=== PATIENT | female | born 1935 | race Caucasian/White ===

== ENCOUNTER 2017-12-15 18:04 | Inpatient (IN) | payer OTHER ==
[~2017-12-15] VITALS: Ht 154.9 cm; Wt 49.4 kg
--- NOTE | 2017-12-15 18:05 | NUR ---
PT LAWRENCE BROWNS
--- NOTE | 2017-12-15 18:11 | NUR ---
PT TAKEN BY EMS CREW TO BED 2
--- NOTE | 2017-12-15 18:16 | NUR ---
PT TRIAGED IN BED 2, REPORT GIVEN TO GLORIA MESSINA.
--- NOTE | 2017-12-15 18:17 | NUR ---
82Y/F BIBA FROM [facility] CALLED AFTER PT WENT TO SLEEP AND WASN'T ANSWERING QUESTIONS APPROPRIATELY, THIS IS BASELINE D/T DEMENTIA. ON ARRIVAL VERBALIZATIONS WERE UNCOMPREHENSIBLE BUT SHE IS ABLE TO VERBALIZE HER YEAR OF . VSS, NAD NOTED. PATIENT POSITIONED FOR COMFORT; HOB ELEVATED; BEDRAILS UP X2; BED DOWN. ER MD MADE AWARE OF PT STATUS.
[2017-12-15 18:21] VITALS: BP 130/78
[2017-12-15 19:23] LABS: BASOPHILS # (AUTO) 0.1 K/uL (0.00-0.22); BASOPHILS % (AUTO) 0.7 % (0.0-2.0); EOSINOPHILS % (AUTO) 0.3 % (0.0-4.0); HEMATOCRIT 37.7 % (36-48); HEMOGLOBIN 11.6 g/dL (12.0-16.0); LYMPHOCYTES # (AUTO) 1.5 K/uL (2.5-16.5); LYMPHOCYTES % (AUTO) 19.3 % (20.5-51.1); MEAN CORPUSCULAR HEMOGLOBIN 27 pg (27-31); MEAN CORPUSCULAR HGB CONC 31 g/dL (33-37); MONOCYTES # (AUTO) 0.6 K/uL (0.8-1.0); MONOCYTES % (AUTO) 7.3 % (1.7-9.3); NEUTROPHILS # (AUTO) 5.7 K/uL (1.8-7.7); NEUTROPHILS % (AUTO) 72.4 % (42.2-75.2); PLATELET COUNT (AUTO) 238 K/uL (140-450); RED BLOOD CELL COUNT(AUTO) 4.28 MIL/uL (4.20-5.40); RED CELL DISTRIBUTION WIDTH 16.4 % (11.6-13.7); WHITE BLOOD COUNT (AUTO) 7.8 K/uL (4.8-10.8)
[2017-12-15 19:31] LABS: CARBON DIOXIDE 27.5 mmol/L (21-32); CHLORIDE 109 mmol/L (98-107); GLUCOSE 132 mg/dL (74-106); POTASSIUM 4.5 mmol/L (3.5-5.1); SODIUM SERUM 142 mmol/L (136-145); UREA NITROGEN, BLOOD 31 mg/dL (7-18)
[2017-12-15 19:37] LABS: ALBUMIN 3.4 g/dL (3.4-5.0); ASPARTATE AMINOTRANSFERASE 17 U/L (15-37); TOTAL BILIRUBIN 0.6 mg/dL (0.0-1.0)
[2017-12-15] MEDS ORDERED: ASPIRIN 325 MG TAB PO ONE (20:05)
[2017-12-15] MEDS ORDERED: NITROGLYCERIN 2% 1 GM PKT TP ONE (20:05)
[2017-12-15] MEDS ORDERED: ATOR10TA PO (20:14)
[2017-12-15] MEDS ORDERED: MULT-2410 PO (20:14)
[2017-12-15] MEDS ORDERED: [UNRECOGNIZED DRUG - CODE] TD (20:14)
[2017-12-15] MEDS ORDERED: LISI10TA11 PO (20:14)
[2017-12-15] MEDS ORDERED: METF500T PO (20:14)
[2017-12-15] MEDS ORDERED: VITD1000 PO (20:14)
[2017-12-15] MEDS ORDERED: ASPI81CT89 PO (20:14)
--- NOTE | 2017-12-15 20:40 | NUR ---
REPORT RECV'D FROM GLORIA MESSINA
--- NOTE | 2017-12-15 20:40 | NUR ---
GAVE REPORT TO SIDDHARTH CONWAY
--- NOTE | 2017-12-15 20:41 | NUR ---
PT FOUND DESATTING TO 88%, PLACED ON 2L NC, 97% ON 2L NC.
[2017-12-15] MEDS ORDERED: DOCUSATE SODIUM 100 MG GELCAP PO PRN (20:50)
[2017-12-15] MEDS ORDERED: ZOLPIDEM 5 MG TAB PO PRN (20:50)
[2017-12-15] MEDS ORDERED: HYDROcodone/APAP 5/325 MG 1 TAB TAB PO PRN (20:50)
[2017-12-15] MEDS ORDERED: ACETAMINOPHEN 325 MG TAB PO PRN (20:50)
[2017-12-15] MEDS ORDERED: ONDANSETRON 4 MG/2 ML VIAL IM/IVP PRN (20:50)
[2017-12-15] MEDS ORDERED: NITROGLYCERIN 0.4 MG TAB SL PRN (21:00)
[2017-12-15] MEDS ORDERED: ATORVASTATIN 20 MG TAB PO SCH (21:00)
[2017-12-15 21:15] LABS: PROTHROMBIN TIME 10.7 secs (10.8-13.4)
--- NOTE | 2017-12-15 21:21 | NUR ---
Patient will be admitted to care of DR. ESCOBEDO. Admited to [facility]. Will go to room 104 A. Belongings list completed. Report to ADRIANNA MESSINA.
[2017-12-15 21:24] LABS: CHOL/HDL RATIO 2.8 (1-4.5); MAGNESIUM 2.3 mg/dL (1.8-2.4); PHOSPHORUS 3.8 mg/dL (2.5-4.9); THYROID STIMULATING HORMONE 4.45 uIU/mL (0.34-3.74)
[2017-12-15 21:27] LABS: BILIRUBIN,URINE 1+ (NEGATIVE); BLOOD, URINE NEGATIVE (NEGATIVE); LEUKOCYTE ESTERASE ,URINE NEGATIVE (NEGATIVE); NITRITE, URINE NEGATIVE (NEGATIVE); UGLUCOSE NEGATIVE (NEGATIVE)
[2017-12-15 21:30] VITALS: BP 116/72
--- NOTE | 2017-12-15 21:30 | NUR ---
PATIENT ARRIVED TO THE UNIT FROM ER. PATIENT IS AOX2. VIETNAMESE SPEAKING. NO SIGNS AND SYMPTOMS OF DISTRESS NOTED. NO COMPLAINTS OF PAIN AT THIS TIME. PATIENT CAN ANSWER A FEW QUESTIONS ABOUT MEDICAL HISTORY, THE REST OF INFORMATION TAKEN FROM PATIENT'S CHART. PLAN OF CARE DISCUSSED WITH PATIENT. REINFORCEMENT NEEDED. PATIENT ON O2 2L NC. IV SITE NOTED ON RIGHT FOREARM, 20 GAUGE. BED IN LOWEST POSITION, SIDE RAILS UP AND BED ALARM ON. SAFETY PRECAUTIONS IN PLACE. WILL CONTINUE TO MONITOR
[2017-12-15] MEDS ORDERED: HEPARIN PER PHARMACY MC PRN (21:40)
[2017-12-15] MEDS ORDERED: hePARIN / DEXT 5% PREMIX 250 ML IV SCH (21:40)
[2017-12-15 21:41] LABS: APPEARANCE,URINE CLEAR (CLEAR)
[2017-12-15 21:42] LABS: COLOR,URINE AMBER (YELLOW)
[2017-12-15] MEDS ORDERED: FUROSEMIDE 20 MG/2 ML VIAL IVP SCH (23:00)
[2017-12-15] MEDS: NACL 0.9% 1,000 ML IV SCH (23:00)
[2017-12-15] MEDS ORDERED: METOPROLOL 25 MG TAB PO SCH (23:00)
--- NOTE | 2017-12-15 23:30 | NUR ---
PATIENT RETURNED FROM RADIOLOGY
--- NOTE | 2017-12-15 23:30 | NUR ---
PATIENT TAKEN TO RADIOLOGY FOR CT SCAN
[2017-12-16] VITALS (7 sets, daily range): BP systolic 90–133; BP diastolic 47–88
--- NOTE | 2017-12-16 | NUR ---
NEW IV SITE INSERTED RIGHT WRIST 24 GAUGE. PATIENT TOLERATED WELL
--- NOTE | 2017-12-16 00:15 | NUR ---
HEPARIN DRIP STARTED PER PHARMACY PROTOCOL. 3000 UNITS BOLUS GIVEN, HEPARIN DRIP RUNNING AT 600UNITS/HR.
[2017-12-16] MEDS: hePARIN / DEXT 5% PREMIX 250 ML IV SCH ×2 (00:16→21:52)
--- NOTE | 2017-12-16 01:00 | NUR ---
PATIENT PULLED OUT IV SITE ON RIGHT WRIST. IV CANNULA INTACT. PATIENT REFUSING NEW IV SITE AT THIS TIME. WILL TRY LATER.
[2017-12-16] MEDS ORDERED: DEXTROSE 50% 50 ML SYR IVP PRN (01:40)
--- NOTE | 2017-12-16 02:35 | NUR ---
ASSISTED PATIENT WITH BED THURMAN. PATIENT VOIDED. PERICARE DONE. PATIENT TOLERATED WELL. WILL CONTINUE TO MONITOR
--- NOTE | 2017-12-16 03:45 | NUR ---
NEW IV SITE INSERTED RIGHT WRIST 24 GAUGE. PATIENT TOLERATED WELL. WILL CONTINUE TO MONITOR.
[2017-12-16] MEDS: BLOOD GLUCOSE MONITORING 1 DEV DEV FS SCH ×4 (05:34→20:47)
[2017-12-16 07:16] LABS: BASOPHILS % (AUTO) 0.6 % (0.0-2.0); EOSINOPHILS % (AUTO) 0.2 % (0.0-4.0); HEMOGLOBIN 10.7 g/dL (12.0-16.0); LYMPHOCYTES % (AUTO) 13.3 % (20.5-51.1); MEAN CORPUSCULAR HEMOGLOBIN 28 pg (27-31); MEAN CORPUSCULAR HGB CONC 32 g/dL (33-37); MONOCYTES # (AUTO) 0.4 K/uL (0.8-1.0); MONOCYTES % (AUTO) 5.5 % (1.7-9.3); NEUTROPHILS # (AUTO) 5.8 K/uL (1.8-7.7); NEUTROPHILS % (AUTO) 80.4 % (42.2-75.2); PLATELET COUNT (AUTO) 207 K/uL (140-450); RED BLOOD CELL COUNT(AUTO) 3.82 MIL/uL (4.20-5.40); RED CELL DISTRIBUTION WIDTH 16.2 % (11.6-13.7); WHITE BLOOD COUNT (AUTO) 7.3 K/uL (4.8-10.8)
--- NOTE | 2017-12-16 07:20 | NUR ---
PATIENT REPORT GIVEN TO MORNING NURSE AT BEDSIDE. PATIENT IS IN STABLE CONDITION
--- NOTE | 2017-12-16 07:20 | NUR ---
REPORT RECEIVED FROM NIGHTSHIFT NURSE AT BEDSIDE. PATIENT IS HARD TO AROUSE AT THIS TIME AND IS EXTREMELY DROWSY. BLOOD PRESSURE TAKEN AND IT IS WITHIN NORMAL LIMITS. O2 SATURATION IS WITHIN NORMAL LIMITS. PATIENT ON 2L O2 VIA NC. NO DISTRESS NOTED. FLACC SCORE 0. PATIENT HAS TWO IV SITES ON RIGHT WRIST 24 G RUNNING NACL 20 ML/HR. PATIENT HEPARIN LINE NOTED ON RIGHT FOREARM 20G RUNNING 600 UNITS/HR. BED IS ALARMED. CALL LIGHT WITHIN REACH OF PATIENT. UPDATED BOARD IN PATIENT'S ROOM. APPOPRIATE SIGNS PLACED OUTSIDE OF PATIENT'S ROOM. WILL CONTINUE TO MONITOR PATIENT.
[2017-12-16 07:57] LABS: ANION GAP 12.7 (8-16); CARBON DIOXIDE 26.5 mmol/L (21-32); CHLORIDE 110 mmol/L (98-107); GLUCOSE 131 mg/dL (74-106); POTASSIUM 4.2 mmol/L (3.5-5.1); SODIUM SERUM 145 mmol/L (136-145); UREA NITROGEN, BLOOD 30 mg/dL (7-18)
--- NOTE | 2017-12-16 08:10 | NUR ---
PTT LEVEL OF PATIENT IS WITHIN THERAPEUTIC RANGE. NO BOLUS GIVEN AND NO CHANGE IN PATIENT'S HEPARIN DRIP.
[2017-12-16 08:19] LABS: MAGNESIUM 2.3 mg/dL (1.8-2.4); PHOSPHORUS 4.3 mg/dL (2.5-4.9)
[2017-12-16] MEDS ORDERED: LISINOPRIL 5 MG TAB PO SCH (09:00)
[2017-12-16] MEDS ORDERED: ASPIRIN 81 MG TAB.CHEW PO SCH (09:00)
[2017-12-16] MEDS ORDERED: VITAMIN D 400 IU TAB PO SCH (09:00)
[2017-12-16] MEDS ORDERED: MULTIVITAMIN PO SCH (09:00)
[2017-12-16] MEDS ORDERED: FUROSEMIDE 20 MG/2 ML VIAL IVP SCH (09:00)
[2017-12-16] MEDS: ASPIRIN 81 MG TAB.CHEW PO SCH (10:01)
[2017-12-16] MEDS: MULTIVITAMIN 1 TAB PO SCH (10:01)
[2017-12-16] MEDS: metFORMIN 500 MG TAB PO SCH (10:02)
[2017-12-16] MEDS: LISINOPRIL 10 MG TAB PO SCH (10:05)
[2017-12-16] MEDS: METOPROLOL 25 MG TAB PO SCH ×2 (10:05→20:46)
--- NOTE | 2017-12-16 10:05 | NUR ---
PATIENT GIVEN ALL MEDICATIONS EXCEPT LASIX. PATIENT TOLERATED WELL. WILL CONTINUE TO MONITOR PATIENT.
--- NOTE | 2017-12-16 12:20 | NUR ---
PATIENT SLEEPING IN BED. NO DISTRESS NOTED. WILL CONTINUE TO MONITOR PATIENT.
[2017-12-16] MEDS: INSULIN LISPRO SLIDING SCALE 100 UNITS/ML VIAL SUBQ PRN (13:36)
--- NOTE | 2017-12-16 14:16 | NUR ---
FAXED INITIAL REVIEW TO [facility] [phone] PHONE [phone].
--- NOTE | 2017-12-16 14:50 | NUR ---
PATIENT SLEEPING. WILL CONTINUE TO MONITOR PATIENT.
--- NOTE | 2017-12-16 16:28 | NUR ---
PATIENTS BLOOD SUGAR IS 72. GAVE PATIENT ORANGE JUICE TO DRINK. WILL REASSESS
--- NOTE | 2017-12-16 17:05 | NUR ---
PATIENT BLOOD SUGAR AT 122. PATIENT FAMILY MEMBERS AT BEDSIDE. PATIENT IS STABLE.
--- NOTE | 2017-12-16 17:15 | NUR ---
PATIENT PTT LEVEL AT 44.8. GAVE PATIENT BOLUS OF 1500 U OF HEPARIN AND INCREASED HEPARIN DRIP TO 700 U/HR. PATIENT TOLERATING WELL. WILL CONTINUE TO MONITOR PATIENT.
--- NOTE | 2017-12-16 19:05 | NUR ---
GAVE REPORT TO NIGHTSHIFT NURSE. PATIENT IN STABLE CONDITION.
--- NOTE | 2017-12-16 19:30 | NUR ---
RECEIVE FROM AM RN IN BED AWAKE AND ALERT.PT.ABLE TO VERBALIZE SIMPLE NEEDS. UNDERSTANDS MAURITANIAN AND MALAY WELL. FOR SWALLOW EVALUATION TOMORROW ORDERED. FAMILY MEMBERS IN HERE VISITING. PT.WITH CONFUSION AT TIMES RT HISTORY OF DEMENTIA. ON 02 AT 2LPM/NC WITH 02 SAT AT 95 %. CARE PLANS FOR THE NIGHT DISCUSSED WITH THEM. ON HEPARIN DRIP AT 7ML/H. BED ALARM ON . NEEDS WILL BE ANTICIPATED AND WILL BE MET.TELEMETRY MONITORING.
[2017-12-16] MEDS: ATORVASTATIN 20 MG TAB PO SCH (20:46)
[2017-12-16] MEDS: NACL 0.9% 1,000 ML IV SCH (20:47)
--- NOTE | 2017-12-16 21:58 | NUR ---
PTT LEVEL FOR 2100 WAS 86.6 . REDUCED DRIP TO 600 UNITS FROM 700 STARTING. CHARGE NURSE MADE AWARE. NEXT PTT ORDERED FOR 0300. PT. SLEEPING AT THIS TIME. IVF SITE NOT INFILTRATED.
--- NOTE | 2017-12-16 23:29 | NUR ---
PT. VITAL SIGN TAKEN. AWAKE AND ALERT. ABLE TO VERBALIZE SIMPLE NEEDS. STATED SHE IS WET WITH URINE. CHANGED BEDDINGS . KEPT DRY, CLEAN AND COMFORTABLE. NO PAIN COMPLAINTS DONE. TELEMETRY MONITORING. NO RESTLESSNESS NOTED.
[2017-12-17 03:20] LABS: BASOPHILS % (AUTO) 0.7 % (0.0-2.0); EOSINOPHILS % (AUTO) 0.3 % (0.0-4.0); HEMOGLOBIN 11.5 g/dL (12.0-16.0); LYMPHOCYTES # (AUTO) 1.5 K/uL (2.5-16.5); LYMPHOCYTES % (AUTO) 19.2 % (20.5-51.1); MEAN CORPUSCULAR HEMOGLOBIN 27 pg (27-31); MEAN CORPUSCULAR HGB CONC 31 g/dL (33-37); MONOCYTES # (AUTO) 0.5 K/uL (0.8-1.0); NEUTROPHILS # (AUTO) 5.5 K/uL (1.8-7.7); NEUTROPHILS % (AUTO) 72.8 % (42.2-75.2); PLATELET COUNT (AUTO) 228 K/uL (140-450); RED CELL DISTRIBUTION WIDTH 16.3 % (11.6-13.7); WHITE BLOOD COUNT (AUTO) 7.6 K/uL (4.8-10.8)
[2017-12-17 03:23] LABS: CARBON DIOXIDE 26.2 mmol/L (21-32); CHLORIDE 110 mmol/L (98-107); CREATININE 0.9 mg/dL (0.6-1.3); GLUCOSE 120 mg/dL (74-106); POTASSIUM 4.2 mmol/L (3.5-5.1); SODIUM SERUM 145 mmol/L (136-145); UREA NITROGEN, BLOOD 30 mg/dL (7-18)
--- NOTE | 2017-12-17 04:18 | NUR ---
NO CHANGE IN HEPARIN DOSE FOR 0300 RESULT OF 56.9- DOSING WILL BE ON 600 UNITS/ 6 ML. NEXT PTT IS 0900.
[2017-12-17 04:21] VITALS: BP 115/68
--- NOTE | 2017-12-17 04:23 | NUR ---
MORNING PERSONAL HYGIENE RENDERED. BED LINEN CHANGED RT URINATED. KEPT CLEAN AND DRY. NO SOB. DENIES PAIN. TELEMETRY MONITORING.
[2017-12-17] MEDS: BLOOD GLUCOSE MONITORING 1 DEV DEV FS SCH ×4 (05:49→20:50)
--- NOTE | 2017-12-17 05:49 | NUR ---
BLOOD SUGAR CHECK PER FINGERSTICK IS 125. NO INSULIN COVERAGE. AWAKE AND ALERT. ABLE TO VERBALIZE SIMPLE NEEDS. TELEMETRY MONITORING. GOOD AFFECT. REMINDED TO USE CALL LIGHT FOR HELP.
--- NOTE | 2017-12-17 07:05 | NUR ---
RECEIVED REPORT FROM NIGHTSHIFT NURSE AT BEDSIDE. PATIENT IS ASLEEP BUT EASILY AROUSABLE. PATIENT ON O2 2 LITERS NASAL CANNULA. VITAL SIGNS WITHIN NORMAL LIMITS. NO DISTRESS NOTED. NO PAIN NOTED. PATIENT HAS AN IV 20 G ON LEFT FOREARM RUNNING 600U/HR HEPARIN DRIP. NO SIGNS OF BLEEDING NOTED. PUT CALL LIGHT WITHIN REACH OF PATIENT. LOWERED BED TO LOWEST SETTING. UPDATED BOARD IN PATIENT'S ROOM. WILL CONTINUE TO MONITOR PATIENT.
[2017-12-17 08:00] VITALS: BP 129/86
[2017-12-17 08:17] LABS: T4 (THYROXINE) 6.9 ug/dL (4.5-12.0)
[2017-12-17] MEDS: METOPROLOL 25 MG TAB PO SCH ×2 (08:22→20:50)
[2017-12-17] MEDS: LISINOPRIL 10 MG TAB PO SCH (08:23)
[2017-12-17] MEDS: ASPIRIN 81 MG TAB.CHEW PO SCH (08:23)
[2017-12-17] MEDS: MULTIVITAMIN 1 TAB PO SCH (08:23)
[2017-12-17] MEDS: metFORMIN 500 MG TAB PO SCH (08:23)
--- NOTE | 2017-12-17 08:23 | NUR ---
PATIENT TOOK ALL AM MEDICATIONS. PATIENT TOLERATED WELL. WILL CONTINUE TO MONITOR PATIENT.
[2017-12-17] MEDS ORDERED: VITAMIN D 400 IU TAB PO SCH (09:00)
--- NOTE | 2017-12-17 11:20 | NUR ---
PTT CAME OUT TO 43.7. CHARLES FROM PHARMACY WILL CHANGE PROTOCOL OF HEPARIN DRIP. WILL INCREASE DRIP RATE FROM 600 U /HR TO 700 U/HR.
[2017-12-17 12:00] VITALS: BP 100/64
--- NOTE | 2017-12-17 12:30 | NUR ---
CM NOTE FAXED CONCURRENT REVIEW TO [facility] [phone] PHONE [phone].
--- NOTE | 2017-12-17 13:30 | NUR ---
PATIENT SLEEPING IN BED. NO DISTRESS NOTED. WILL CONTINUE TO MONITOR PATIENT.
--- NOTE | 2017-12-17 13:40 | NUR ---
ADMINISTRATIVE RESIDENT NOTE [id number] Bedside swallow evaluation completed following clearance by SIDDHARTH Cardenas. Please refer to ADMINISTRATIVE RESIDENT evaluation for full report. Recommend: -Mech soft/chopped texture and thin liquids -Supervision for intake and safety -Encourage PO intake -Dentures in while consuming PO -RD consult/appetitie stimulant consideration for poor appetite -ADMINISTRATIVE RESIDENT to follow 1x/wk x1wk for diet tolerance and modification and warranted. PVE w/RN and family re: results and recommendations. G8996: CJ G8998: CI Swallow NOMS 3
[2017-12-17] MEDS: hePARIN / DEXT 5% PREMIX 250 ML IV SCH (13:49)
--- NOTE | 2017-12-17 15:22 | NUR ---
PT NOTES CLEARED BY RN FOR P.T. TX. ATTEMPTED TO SEE PATIENT FOR TX, BUT PATIENT DECLINED TO PARTICIPATE. PATIENT C/O FATIGUE. PATIENT'S FAMILY PRESENT AT BEDSIDE. PATIENT ENCOURAGED TO PARTICIPATE, BUT DECLINED. RN "MARCIANO" IS AWARE. DISCUSSED W/ PRIMARY PHYSICAL THERAPIST. WILL FOLLOW UP TOMORROW. Addendum: 12/17/17 at 1549 by Niharika Savage PT PHYSICAL THERAPY CO-SIGN The Physical Therapy Progress Notes documented by Counter Waitress/Waiter have been reviewed. Reviewed/Co-Signed by: Niharika Savage DPT Documentation Done by: Talita Cha PTA I concur w/MULTIPLE LAUNCH ROCKET SYSTEM CREWMEMBER notes. No PT tx done today.
[2017-12-17 16:00] VITALS: BP 104/69
--- NOTE | 2017-12-17 16:20 | NUR ---
PATIENT SLEEPING. NO DISTRESS NOTED. WILL CONTINUE TO MONITOR PATIENT.
--- NOTE | 2017-12-17 18:37 | NUR ---
PATIENT'S PTT LEVEL OF 57.2 IS WITHIN THERAPEUTIC LEVEL. NO CHANGE IN HEPARIN DRIP AND NO BOLUS.
--- NOTE | 2017-12-17 19:20 | NUR ---
GAVE REPORT TO NIGHTSHIFT NURSE AT BEDSIDE. PATIENT IN STABLE CONDITION.
--- NOTE | 2017-12-17 19:55 | NUR ---
SEEN PT ASLEEP BUT EASILY AROUSABLE. INITIAL ASSESSMENT DONE. VITAL SIGNS CHECKED. PT DENIES ANY DISCOMFORT OR SHORTNESS OF BREATH. SAFETY ENSURED. PT REPOSITIONED FOR COMFORT. BED ALARM IS ON. WILL CONTINUE TO MONITOR.
[2017-12-17 20:00] VITALS: BP 104/61
[2017-12-17] MEDS: ATORVASTATIN 20 MG TAB PO SCH (20:50)
--- NOTE | 2017-12-17 20:50 | NUR ---
SEEN PT SLEEPING BUT EASILY AROUSABLE. BLOOD SUGAR CHECKED:131. NO COVERAGE NEEDED. MEDICATIONS GIVEN FOLLOWED W/ WATER. PT TOLERATED MEDICATION. TEACHINGS PROVIDED.
--- NOTE | 2017-12-17 21:30 | NUR ---
PT IS INCONTINENT. PERICARE RENDERED. PT REPOSITIONED FOR COMFORT.
--- NOTE | 2017-12-17 23:05 | NUR ---
SEEN PT ASLEEP. VITAL SIGNS CHECKED. PT'S O2SAT 89% ON ROOM AIR. PT PLACED ON 2L OXYGEN VIA NC AND WENT BACK UP TO 94%. PT DENIES ANY DISCOMFORT. PERICARE RENDERED. PT REPOSITIONED FOR COMFORT.
[2017-12-17 23:59] VITALS: BP 104/68
--- NOTE | 2017-12-18 01:08 | NUR ---
SPOKE TO GEOVANNA FROM THE LAB REGARDING PT'S PTT LEVEL=64.9. WILL NOTIFY RESIDENT.
--- NOTE | 2017-12-18 01:09 | NUR ---
SPOKE TO DR BOB REGARDING PT'S PTT LEVEL AND INFORMED HIM THAT IT'S STILL W/IN THERAPEUTIC LEVEL PER HEPARIN PROTOCOL. HE SAID "OK". NO NEW ORDERS RECEIVED.
[2017-12-18 04:30] VITALS: BP 115/75
--- NOTE | 2017-12-18 04:30 | NUR ---
SEEN PT ASLEEP. VITAL SIGNS CHECKED. PT DENIES ANY DISCOMFORT. PT IS DRY. PT REPOSITIONED FOR COMFORT.
--- NOTE | 2017-12-18 06:35 | NUR ---
BLOOD SUGAR CHECKED:138. NO COVERAGE NEEDED. PT REPOSITIONED FOR COMFORT. BED ALARM ON.
[2017-12-18] MEDS: BLOOD GLUCOSE MONITORING 1 DEV DEV FS SCH ×4 (06:59→20:38)
--- NOTE | 2017-12-18 07:01 | NUR ---
WILL ENDORSE CARE TO DAYSHIFT NURSE.
--- NOTE | 2017-12-18 07:10 | NUR ---
RECEIVED PATIENT REPORT AT BEDSIDE. PATIENT ASLEEP BUT AROUSABLE. NO S/S OF DISTRESS. PATIENT ON ROOM AIR, NO SOB. PATIENT CURRENTLY ON HEPARIN DRIP INFUSING AT 7ML/HR ON THE THE RIGHT FOREARM. PATIENT ON TELE MONITORING. BED LOWERED WITH CALL LIGHT WITHIN REACH. WILL CONTINUE TO MONITOR
[2017-12-18 07:18] LABS: BASOPHILS # (AUTO) 0.1 K/uL (0.00-0.22); EOSINOPHILS % (AUTO) 0.3 % (0.0-4.0); LYMPHOCYTES # (AUTO) 1.7 K/uL (2.5-16.5); LYMPHOCYTES % (AUTO) 21.3 % (20.5-51.1); MEAN CORPUSCULAR HGB CONC 32 g/dL (33-37); MEAN CORPUSCULAR VOLUME 87.8 fL (80-94); MONOCYTES # (AUTO) 0.5 K/uL (0.8-1.0)
[2017-12-18 07:30] LABS: BASOPHILS % (AUTO) 0.7 % (0.0-2.0); HEMATOCRIT 38.6 % (36-48); HEMOGLOBIN 12.2 g/dL (12.0-16.0); MEAN CORPUSCULAR HEMOGLOBIN 28 pg (27-31); MONOCYTES % (AUTO) 6.3 % (1.7-9.3); NEUTROPHILS # (AUTO) 5.7 K/uL (1.8-7.7); NEUTROPHILS % (AUTO) 71.4 % (42.2-75.2); PLATELET COUNT (AUTO) 245 K/uL (140-450); RED CELL DISTRIBUTION WIDTH 16.1 % (11.6-13.7)
[2017-12-18 07:43] LABS: ANION GAP 14.1 (8-16); CARBON DIOXIDE 24.8 mmol/L (21-32); CHLORIDE 106 mmol/L (98-107); CREATININE 0.8 mg/dL (0.6-1.3); GLUCOSE 130 mg/dL (74-106); POTASSIUM 3.9 mmol/L (3.5-5.1); SODIUM SERUM 141 mmol/L (136-145); UREA NITROGEN, BLOOD 25 mg/dL (7-18)
[2017-12-18 07:52] VITALS: BP 103/68
[2017-12-18 07:57] LABS: MAGNESIUM 2.2 mg/dL (1.8-2.4); PHOSPHORUS 3.4 mg/dL (2.5-4.9)
[2017-12-18] MEDS: METOPROLOL 25 MG TAB PO SCH ×2 (08:59→20:39)
[2017-12-18] MEDS: metFORMIN 500 MG TAB PO SCH (08:59)
[2017-12-18] MEDS: MULTIVITAMIN 1 TAB PO SCH (08:59)
[2017-12-18] MEDS: ASPIRIN 81 MG TAB.CHEW PO SCH (08:59)
--- NOTE | 2017-12-18 08:59 | NUR ---
ASSISTED PATIENT WITH BREAKFAST. PATIENT HAS POOR APPETITE. SCHEDULED PO MEDS ADMINISTERED. PATIENT TOLERATED WELL
[2017-12-18] MEDS: LISINOPRIL 10 MG TAB PO SCH (09:00)
[2017-12-18] MEDS: NACL 0.9% 1,000 ML IV SCH ×2 (09:00→20:47)
--- NOTE | 2017-12-18 11:47 | NUR ---
Custom Stock Maker Note: Per Patience from [facility] , patient is on a 7 day bed hold and is one of their terminal superintendent patients. Per Patience phone number for Keya is , I requested Jessica from Admitting Dept to correct phone number on face sheet. I called and spoke with Keya, patient has an existing Advance Directive, which is included in medical chart, it indicates Keya is patient's healthcare agent. Per Keya, she would like patient to return to [facility] upon discharge.
[2017-12-18 12:00] VITALS: BP 117/66
--- NOTE | 2017-12-18 12:07 | NUR ---
President Ceo & Founder Note: I faxed patient's clinical information to Tamika Waddell (JAYMIE) .
[2017-12-18] MEDS: INSULIN LISPRO SLIDING SCALE 100 UNITS/ML VIAL SUBQ PRN (12:27)
--- NOTE | 2017-12-18 13:17 | NUR ---
PT AWAKE AND SITTING UP IN BED. DAUGHTER AT BEDSIDE. PT HAD FEW BITES OF LUNCH, REFUSED TO EAT. PT IS STABLE. NO COMPLAINTS. ALL NEEDS MET. WILL CONTINUE TO MONITOR PT.
--- NOTE | 2017-12-18 14:30 | NUR ---
PATIENT SEEN BY PT
--- NOTE | 2017-12-18 14:34 | NUR ---
DISTRIBUTION CENTER SUPERVISOR NOTE S/O: Pt seen at bedside, awake and alert. Daughter present at bedside. Pt had no c/o pain. Pt dentures in place, pt daughter stating pt consumed a few bites of food before stating she was not hungry. Per daughter, pt has repeatedly stated she has no appetite and does not want to eat. DISTRIBUTION CENTER SUPERVISOR provided strict education re: consuming least restrictive diet and ensuring pt quality of life. Family voiced agreement, and concerns that pt might not accept puree items. Pt is receiving IV fluids, and per RN, pending orders for ensure. A/P: Pt demonstrates functional swallow, but poor appetite. Pt at high risk for malnutrition and increased weight loss. DISTRIBUTION CENTER SUPERVISOR to d/c 07/12 no dysphagia present. G8996: CJ G8997: CI G8998: CI Swallow NOMS 2 [id number]
--- NOTE | 2017-12-18 14:56 | NUR ---
CM NOTE FAXED CONCURRENT REVIEW TO [facility] [phone] PHONE [phone].
--- NOTE | 2017-12-18 15:02 | NUR ---
Color Card Maker Note: Per Patience from [facility] ([facility]) , patient may return to room 12B upon discharge.
[2017-12-18 16:00] VITALS: BP 95/67
--- NOTE | 2017-12-18 16:40 | NUR ---
PATIENT ASLEEP IN BED. NO S/S OF DISTRESS NOTED. FAMILY MEMBERS PRESENT AT BEDSIDE
--- NOTE | 2017-12-18 17:55 | NUR ---
PHYSICAL THERAPY CO-SIGN The Physical Therapy Progress Notes documented by Production Team Leader have been reviewed. Reviewed/Co-Signed by: Ave Mahan PT Documentation Done by:ARIAN TREVIZO SINGLE SPINDLE SCREW MACHINE OPERATOR POC REVIEWED W/ SINGLE SPINDLE SCREW MACHINE OPERATOR; WILL BENEFIT W/ P.T. AFTER ACUTE STAY Addendum: 12/18/[address] PT Amended: Links added.
--- NOTE | 2017-12-18 19:25 | NUR ---
PATIENT REPORT GIVEN AT BEDSIDE. PATIENT ENDORSED IN STABLE CONDITION
--- NOTE | 2017-12-18 19:26 | NUR ---
RECEIVED REPORT FROM DAY SHIFT RN FOR CONTINUITY OF CARE. PT IS 82 YEAR OLD FEMALE WITH Hx OF DEMENTIA, A/OX1, ON ROOM AIR. PT IS ABLE TO MAKE NEEDS KNOWN, ABLE TO FOLLOW COMMANDS. RESPIRATIONS EVEN AND UNLABORED AT THE MOMENT. PT SKIN IS INTACT. PT HAS 22G IV TO EACH RIGHT AND LEFT FOREARMS, ASYMPTOMATIC, INTACT AND PATENT. PT IS ON BEDREST. DISCUSSED PLAN OF CARE WITH PT, PT VERBALIZED UNDERSTANDING. VITAL SIGNS WITHIN NORMAL LIMITS. PT STABLE, NO SIGNS OF DISTRESS NOTED AT THIS TIME. BED IN LOWEST POSITION, BED ALARM ON. CALL LIGHT WITHIN REACH, WILL CONTINUE TO MONITOR.
[2017-12-18 20:00] VITALS: BP 101/60
[2017-12-18] MEDS: FUROSEMIDE 20 MG/2 ML VIAL IVP SCH (20:39)
[2017-12-18] MEDS: ATORVASTATIN 20 MG TAB PO SCH (20:39)
--- NOTE | 2017-12-18 20:39 | NUR ---
ADMINISTERED SCHEDULED MEDICATIONS, PT TOLERATED WELL. HELD LOPRESSOR BECAUSE PT GETTING LASIX FOR CHF AND B/P AT THE MOMENT IS 101/60.
--- NOTE | 2017-12-19 | NUR ---
VITAL SIGNS WITHIN NORMAL LIMITS. PT STABLE, NO SIGNS OF DISTRESS NOTED AT THIS TIME. BED IN LOWEST POSITION, BED ALARM ON. CALL LIGHT WITHIN REACH, WILL CONTINUE TO MONITOR.
[2017-12-19 01:37] VITALS: BP 118/66
[2017-12-19 04:00] VITALS: BP 116/72
[2017-12-19] MEDS: hePARIN / DEXT 5% PREMIX 250 ML IV SCH (05:18)
--- NOTE | 2017-12-19 05:22 | NUR ---
REPLACED BAG OF HEPARIN, NO SIGNS OF EXTERNAL OR INTERNAL BLEEDING NOTED.
[2017-12-19] MEDS: BLOOD GLUCOSE MONITORING 1 DEV DEV FS SCH ×2 (06:35→11:30)
[2017-12-19 07:14] LABS: BASOPHILS % (AUTO) 0.7 % (0.0-2.0); EOSINOPHILS % (AUTO) 0.4 % (0.0-4.0); HEMATOCRIT 40.4 % (36-48); HEMOGLOBIN 12.7 g/dL (12.0-16.0); LYMPHOCYTES # (AUTO) 1.4 K/uL (2.5-16.5); LYMPHOCYTES % (AUTO) 21.2 % (20.5-51.1); MEAN CORPUSCULAR HEMOGLOBIN 28 pg (27-31); MEAN CORPUSCULAR HGB CONC 32 g/dL (33-37); MEAN CORPUSCULAR VOLUME 87.2 fL (80-94); MONOCYTES # (AUTO) 0.4 K/uL (0.8-1.0); MONOCYTES % (AUTO) 5.6 % (1.7-9.3); NEUTROPHILS # (AUTO) 4.7 K/uL (1.8-7.7); NEUTROPHILS % (AUTO) 72.1 % (42.2-75.2); PLATELET COUNT (AUTO) 253 K/uL (140-450); RED BLOOD CELL COUNT(AUTO) 4.63 MIL/uL (4.20-5.40); WHITE BLOOD COUNT (AUTO) 6.5 K/uL (4.8-10.8)
--- NOTE | 2017-12-19 07:15 | NUR ---
ENDORSED PT TO DAY SHIFT RN FOR CONTINUITY OF CARE. PT IN STABLE CONDITION.
[2017-12-19 07:46] LABS: ANION GAP 15.7 (8-16); CHLORIDE 105 mmol/L (98-107); CREATININE 0.9 mg/dL (0.6-1.3); GLUCOSE 123 mg/dL (74-106); POTASSIUM 3.7 mmol/L (3.5-5.1); SODIUM SERUM 143 mmol/L (136-145); UREA NITROGEN, BLOOD 24 mg/dL (7-18)
[2017-12-19 07:48] VITALS: BP 118/70
[2017-12-19] MEDS: FUROSEMIDE 20 MG/2 ML VIAL IVP SCH (08:55)
--- NOTE | 2017-12-19 08:55 | NUR ---
PATIENT REFUSES TO EAT, STATING SHE HAS POOR APPETITE. PATIENT ATE SOME OF HER YOGURT AND DRANK SOME MILK SHAKE. ADMINISTERED DUE MEDS. PATIENT TOLERATED WELL . WILL CONTINUE TO MONITOR
[2017-12-19] MEDS: ASPIRIN 81 MG TAB.CHEW PO SCH (08:58)
[2017-12-19] MEDS: MULTIVITAMIN 1 TAB PO SCH (08:58)
[2017-12-19] MEDS: LISINOPRIL 10 MG TAB PO SCH (08:58)
[2017-12-19] MEDS: metFORMIN 500 MG TAB PO SCH (08:58)
[2017-12-19] MEDS: METOPROLOL 25 MG TAB PO SCH (09:01)
--- NOTE | 2017-12-19 11:03 | NUR ---
Library Services Assistant Note: I notified Patience from [facility] ([facility]) , patient will be transfer to their facility today, room 12B, corrections caseworker Gama will arrange transportation.
--- NOTE | 2017-12-19 11:16 | NUR ---
PATIENT REPORT GIVEN TO IKER ACHARYA [facility]
--- NOTE | 2017-12-19 11:34 | NUR ---
PATIENT ASLEEP IN BED. NO S/S OF DISTRESS NOTED
[2017-12-19 12:00] VITALS: BP 108/49
--- NOTE | 2017-12-19 13:07 | NUR ---
clinical review faxed to [facility] at [phone]. obtained an auth for transport for [facility] [id number]. STORAGE BATTERY INSPECTOR AT 330 PM. . AUTH FOR [facility] [id number] [facility].
[2017-12-19] MEDS: INSULIN LISPRO SLIDING SCALE 100 UNITS/ML VIAL SUBQ PRN (13:39)
--- NOTE | 2017-12-19 15:45 | NUR ---
PATIENT PICKED UP BY [facility] TO BE TRANSFERRED TO [facility]. PATIENT'S GRAND DAUGHTER KEVEN SIGNED ALL OF THE DISCHARGE PAPERS. DISCHARGE INSTRUCTIONS GIVEN. PATIENT'S GRAND DAUGHTER TOOK ALL OF THE PATIENT'S BELONGINGS. PATIENT LEFT WITH ALL OF HER DISCHARGE PAPERS. PATIENT LEFT IN STABLE CONDITION
== END 2017-12-19 15:45 | DRG 280 ==
LOC: MED 18:04 → MTU 20:55
PROVIDERS: ADMIT General Practice; ATTEND General Practice
DX: I21.A1 Myocardial infarction type 2 (principal); I50.43 Acute on chronic combined systolic (congestive) and diastolic (congestive) heart failure; G93.41 Metabolic encephalopathy; N17.0 Acute kidney failure with tubular necrosis; F02.81 Dementia in other diseases classified elsewhere, unspecified severity, with behavioral disturbance; I42.9 Cardiomyopathy, unspecified; E11.65 Type 2 diabetes mellitus with hyperglycemia; E87.8 Other disorders of electrolyte and fluid balance, not elsewhere classified; E78.5 Hyperlipidemia, unspecified; E55.9 Vitamin D deficiency, unspecified; I11.0 Hypertensive heart disease with heart failure; G30.9 Alzheimer's disease, unspecified; Z79.82 Long term (current) use of aspirin; Z79.899 Other long term (current) drug therapy; Z90.710 Acquired absence of both cervix and uterus
CPT/HCPCS: 36415; 36600; 70450; 71045; 80048; 80053; 81003; 82140; 82150; 82803; 82948; 83036; 83690; 83735; 83880; 84100; 84134; 84436; 84443; 84479; 84484; 85025; 85610; 85730; 87081; 92526; 92610; 93005; 97110; 97116; 97140; 97530; 97799; 99285; J1644; J1815; J1940; J7030; Q0092